=== PATIENT | male | born 1985 | race Caucasian/White ===

== ENCOUNTER 2021-03-16 13:32 | Emergency (ER) | payer BC, SELFPAY ==
--- NOTE | ~2021-03-16 | XR_ITS ---
EXAMINATION: XR ankle LT min 3V DATE: 03/16/2021 14:10 INDICATION: Lateral left ankle pain post twisting injury TECHNIQUE: Anteroposterior, oblique, mortise, and lateral views of the left ankle were obtained. COMPARISON: None. FINDINGS: Alignment is normal. No fracture. Joint spaces are well maintained. A couple bone islands in the dis mohini tibia and distal fibula. No ankle joint effusion. Soft tissue swelling overlying the lateral mall eolus. IMPRESSION: 1. No osseous abnormality. Reviewed, dictated and finalized at location A. IMPRESSION: 1. No osseous abnormality.
[2021-03-16 13:45] VITALS: BP 109/55; PULSE 68; RESP 16; TEMP 36.9; O2SAT 100
--- NOTE | 2021-03-16 15:02 | ED.LOWEXIN ---
HPI - Extremity Injury (Lower) General Chief Complaint: Extremity Injury, Lower Stated Complaint: left ankle pain Time Seen by Provider: 03/16/21 14:56 Source: patient and RN notes reviewed Mode of arrival: ambulatory Limitations: no limitations History of Present Illness HPI Narrative: Patient presents today complaining of left ankle injury. Last night at 2330 he stepped off a tree stump into a hole in his home, twisting his ankle. Reports some numbness in his foot at this time. Currently rates his pain 10/10 after he removed his boot upon arrival. States it was feeling better when he had his boot on and laced up. He did take some ibuprofen, without relief. MD complaint: ankle injury Related Data Home Medications Medication Instructions Recorded Confirmed No Home Medications 03/16/21 03/16/21 Allergies Allergy/AdvReac Type Severity Reaction Status Date / Time No Known Allergies Allergy Verified 03/16/21 13:44 Review of Systems Review of Systems: CONSTITUTIONAL: Denies body aches, fever, chills, or sweats. EYES: Denies visual changes, redness, or discharge. ENT: Denies rhinorrhea, congestion, sore throat, or otalgia. CARDIOVASCULAR: Denies chest pain, palpitations, or edema. RESPIRATORY: Denies cough or dyspnea. GASTROINTESTINAL: Denies abdominal pain, nausea, vomiting, or diarrhea. GENITOURINARY: Denies dysuria or hematuria. SKIN: Denies rash, itching, or wounds. MUSCULOSKELETAL: Denies back pain,or myalgia. + Left ankle injury NEUROLOGIC: Denies headache, tingling, or weakness. + Left foot numbness PSYCH: Denies depression or anxiety. PMFSH Comments At time of signature, I have reviewed and agree with nursing past medical, surgical, social and family history unless otherwise noted. Please see nursing chart for further information. There is no relevant family history pertinent to the presenting complaint Exam Narrative: GENERAL: Well-appearing, well-nourished, and in no acute distress. HEAD: Normocephalic, atraumatic. EYES: EOMI. No redness or drainage. Conjunctivae normal. ENT: Mucous membranes pink and moist. NECK: Normal AROM. CHEST: No respiratory distress. EXTREMITIES: Left ankle: Moderate swelling about the lateral malleolus with mild ecchymosis. Tenderness to same area. Mild tenderness to the medial malleolus and anterior ankle. No tenderness to the foot. Distal sensation is intact in all toes. Capillary refill normal. Pedal pulse normal. Full active range of motion of the ankle with increased pain. SKIN: Warm, dry, no rash. Capillary refill normal. Normal skin turgor. NEURO: No focal deficits. Alert and oriented x3. Gait steady. PSYCH: Normal affect. No signs of depression or anxiety. Course Vital Signs Vital signs: Vital Signs Temperature 98.5 F 03/16/21 13:45 Pulse Rate 68 03/16/21 13:45 Respiratory Rate 16 03/16/21 13:45 Blood Pressure 109/55 L 03/16/21 13:45 Pulse Oximetry 100 03/16/21 13:45 Temperature 98.5 F 03/16/21 13:45 Pulse Rate 68 03/16/21 13:45 Respiratory Rate 16 03/16/21 13:45 Blood Pressure 109/55 L 03/16/21 13:45 Pulse Oximetry 100 03/16/21 13:45 Reviewed MDM - Extremity Injury (Lower) Differential Diagnosis Differential diagnosis: Likely ankle sprain and strain, ankle fracture and other (Contusion) Imaging Data Radiologist's impression: ITS Impressions Ankle X-Ray 03/16/21 14:12 IMPRESSION: 1. No osseous abnormality. Critical Care Time Critical Care Time Critical Care Time: No Discharge Plan Discharge Clinical Impression: Left ankle sprain Patient Disposition: Home, Self-Care Condition: Stable Instructions: Ankle Sprain (DC) Additional Instructions: Your ankle x-ray is negative for fracture today. Elevate and ice the ankle. Wear Andrei wrap for comfort and stability. Take an anti-inflammatory such as Aleve or ibuprofen for pain and inflammation. Follow-up with your PCP or orthoped
== END 2021-03-16 15:20 | disposition home or self-care (01) ==
PROVIDERS: Emergency Provider Nurse Practitioner
DX: S93.402A Sprain of unspecified ligament of left ankle, initial encounter (principal); X50.9XXA Other and unspecified overexertion or strenuous movements or postures, initial encounter
CPT/HCPCS: 73610; 99203; G0463

== ENCOUNTER 2025-03-17 15:50 | Emergency (ER) | payer BC, SELFPAY ==
--- NOTE | ~2025-03-17 | XR_ITS ---
EXAMINATION: XR shoulder RT min 2V DATE: 03/17/2025 16:34 INDICATION: Right shoulder pain and swelling TECHNIQUE: AP internally and externally rotated, AP oblique externally rotated and transscapular Y vi ews of the right shoulder were obtained. COMPARISON: None FINDINGS: Normal alignment. No fracture. Glenohumeral joint space is normal but with moderate-sized marginal o steophyte along the inferior rim of the glenoid. Acromioclavicular joint is normal. There is marginal osteophyte Soft tissues are unremarkable. Visualized portions of the right lung are clear. IMPRESSION: 1. No acute osseous abnormality. 2. Moderate size marginal osteophyte along the inferior right glenoid which could be due to minimal o steoarthritis with relatively preserved joint space or sequela of chronic injury or degeneration to t he inferior labrum. Reviewed, dictated and finalized at location A. IMPRESSION: 1. No acute osseous abnormality. 2. Moderate size marginal osteophyte along the inferior right glenoid which cou ld be due to minimal osteoarthritis with relatively preserved joint space or se quela of chronic injury or degeneration to the inferior labrum.
[2025-03-17 15:58] VITALS: BP 125/68; PULSE 64; RESP 16; TEMP 36.8; O2SAT 97
--- NOTE | 2025-03-17 17:15 | ED_ITS ---
HPI - Extremity Injury (Upper) General Chief Complaint: Extremity Injury, Upper Stated Complaint: Right Shoulder Pain Time Seen by Provider: 03/17/25 15:52 Source: patient Mode of arrival: ambulatory Limitations: no limitations History of Present Illness HPI narrative: Patient is a 39-year-old male who presents with 10 days of right shoulder pain with movement. Reports he does a lot of repetitive motion and he was using a piece of machinery that kept pushing back and his arm while using it. Reports area from front of shoulder to the back over the scapula tender to touch. Patient has been taking ibuprofen with no relief. Related Data Allergies Allergy/AdvReac Type Severity Reaction Status Date / Time No Known Allergies Allergy Verified 03/17/25 15:51 Review of Systems Review of Systems: All systems reviewed & are unremarkable except as noted in HPI and below Constitutional: Constitutional: Denies body ache(s), Denies chills, Denies fatigue, Denies fever(s), Denies headache(s), Denies malaise and Denies weakness Eyes: Eyes: Denies blurry vision, Denies irritation and Denies loss of vision ENT: Denies otalgia, Denies headache(s), Denies nasal discharge, Denies sinus pain and Denies sore throat Cardiovascular: Cardiovascular: Denies chest pain, Denies irregular heart rhythm and Denies dyspnea Respiratory: Respiratory: Denies dyspnea Gastrointestinal: Gastrointestinal: Denies abdominal pain, Denies melena, Denies hematochezia, Denies diarrhea, Denies nausea and Denies vomiting Musculoskeletal: Musculoskeletal: Denies back pain, Denies myalgias, Reports arthralgias and Reports joint swelling Integumentary/Breasts: Skin/Breast: Denies pruritus and Denies rash Neurologic: Denies headache(s), Denies loss of vision and Denies weakness Psychiatric: Psychiatric: Reports no additional psychiatric complaints Endocrine: Endocrine: Denies fatigue PMFSH Comments At time of signature, agree with nursing past medical, surgical, social and family history. There is no relevant family history pertinent to the presenting complaint. Exam Const: General: cooperative, healthy appearing, comfortable, no acute distress and well nourished Nutritional Appearance: well nourished Orientation/consciousness: patient oriented x3 Limitations: no limitations HENMT: Head: normal to inspection, normocephalic and atraumatic Ears: hearing grossly normal bilaterally and external ears normal Face/Nose/Sinus: Normal external nose present, normal facial exam and face symmetric Face and sinus: normal facial exam and face symmetric Mouth: Yes lip normal Eyes: General: appearance normal, both eyes and all related structures Alignment and Position: alignment normal and position normal Periorbital: periorbital findings normal Eyelids: eyelids normal Pupils: Equal, round and reactive pupils present EOM: EOMs intact bilaterally Neck: Neck: normal visual inspection, full ROM and supple Chest: Chest palpation & inspection: normal inspection of the chest Resp: Effort & Inspection: normal respiratory effort and able to speak in complete sentences Auscultation: clear to auscultation bilaterally Cardio: Rate: regular rate Rhythm: regular rhythm Heart sounds: S1 normal heart sound present and S2 normal heart sound present GI: Inspection: normal to inspection Skin: General skin exam: normal color and no rashes or lesions noted Neuro: General: patient oriented x3 and moves all extremities Cranial nerves: Yes Equal, round and reactive pupils present Speech: normal speech Gait exam (Neuro): Normal gait present Extrem: General: normal to inspection, full ROM and no edema Right upper extremity: shoulder/upper arm normal to inspection, tenderness of the clavicle laterally and of the scapula, axillary nerve sensory function normal and abnormal ROM pain with active ROM in ADduction, in ABduction, in extension and in flexion; no swelling, no ecchymosis and no unusual warmth and elbow/forearm normal to inspection, normal ROM and distal pulses intact; no tenderness Psych: Appearance: grossly normal and well kempt Mental Status: mental status grossly normal Speech and movement: Normal speech and movement present Affect: normal affect Attitude: cooperative Thought process: Normal thought process present Course Course Emergency Course: Patient is aware of diagnosis, understands and agrees to treatment plan. Anticipatory guidance given. Patient agrees to follow-up as directed and is aware of reasons to seek care at the emergency department. Portions of this record may have been created with voice recognition software Level of Care: Express Care Visit Vital Signs Vital signs: Vital Signs Temperature 36.8 C 03/17/25 15:58 Pulse Rate 64 03/17/25 15:58 Respiratory Rate 16 03/17/25 15:58 Blood Pressure 125/68 03/17/25 15:58 Pulse Oximetry 97 03/17/25 15:58 Oxygen Delivery Room Air 03/17/25 15:58 Temperature 36.8 C 03/17/25 15:58 Pulse Rate 64 03/17/25 15:58 Respiratory Rate 16 03/17/25 15:58 Blood Pressure 125/68 03/17/25 15:58 Pulse Oximetry 97 03/17/25 15:58 Oxygen Delivery Room Air 03/17/25 15:58 Reviewed MDM - Extremity Injury (Upper) MDM Narrative Medical decision making narrative: The R shoulder is without obvious asymmetry or deformity when comparing to L shoulder. No surface trauma, ecchymosis, crepitus. No bony deformity of the humerus head. No erythema, warmth, swelling to palpate. Nontender to palpate over the A to C joint, acromion, or humeral head. Nontender to palpations of the bicipital groove or soft tissue. Then tender to palpate of the muscles of the scapula, clavicle, sternocleidomastoid, pectori. Nontender biceps/triceps, deltoid, trapezius, rhomboid, latissimus dorsi is, or rotator cuff. pain limitation with active or passive abduction/abduction, flexion/extension. No axillary tenderness or lymphadenopathy. Normal sensation over the deltoid and ability to flex the arm at the elbow indicated Intacs axillary nerve function. Distal motor is a normal vascular status is intact. Will treat with steroids and muscle relaxer for muscle strain or Differential Diagnosis Differential diagnosis: Likely dislocation of shoulder and other (Shoulder strain, muscle strain) Medical Records Attestation: I reviewed the patient's medical records. Imaging Data Radiologist's impression: EXAMINATION: XR shoulder RT min 2V DATE: 03/17/2025 16:34 INDICATION: Right shoulder pain and swelling TECHNIQUE: AP internally and externally rotated, AP oblique externally rotated and transscapular Y views of the right shoulder were obtained. COMPARISON: None FINDINGS: Normal alignment. No fracture. Glenohumeral joint space is normal but with moderate-sized marginal osteophyte along the inferior rim of the glenoid. Acromioclavicular joint is normal. There is marginal osteophyte Soft tissues are unremarkable. Visualized portions of the right lung are clear. IMPRESSION: 1. No acute osseous abnormality. 2. Moderate size marginal osteophyte along the inferior right glenoid which could be due to minimal osteoarthritis with relatively preserved joint space or sequela of chronic injury or degeneration to the inferior labrum. Discharge Plan Discharge Clinical Impression: Osteoarthritis of shoulder Qualifiers: Osteoarthritis type: unspecified Laterality: right Qualified Code(s): M19.011 - Primary osteoarthritis, right shoulder Muscle strain of right shoulder Qualifiers: Encounter type: initial encounter Qualified Code(s): S46.911A - Strain of unspecified muscle, fascia and tendon at shoulder and upper arm level, right arm, initial encounter Patient Disposition: Home Condition: Stable Instructions: Muscle Strain (ED) Additional Instructions: Take steroids in the morning with food. Use muscle relaxers as needed for spasms. They may make you drowsy Avoid activities that cause pain until the pain subsides. Ice to the area 20-30 minutes 4-6 times a day Tylenol for lesser pain Follow up with your primary care provider if the condition is not improving within 1 week. If the condition worsens with numbness, tingling, decrease sensation with weakness seek treatment in the emergency room immediately. Patient Language: Chinese Prescriptions: New cyclobenzaprine 10 mg tablet 10 mg PO TID PRN (Reason: muscle spasm) Qty: 15 0RF prednisone 20 mg tablet 40 mg PO DAILY 5 Days Qty: 10 0RF Follow-up/Referrals: Jaswant Dao MD [Physician] - 3 Days (Establish care) Stand Alone Forms: Work/School Release IP Time of Disposition: 17:18
== END 2025-03-17 17:25 | disposition home or self-care (01) ==
PROVIDERS: Emergency Provider Nurse Practitioner Family
DX: S46.911A Strain of unspecified muscle, fascia and tendon at shoulder and upper arm level, right arm, initial encounter (principal); W31.9XXA Contact with unspecified machinery, initial encounter; M19.011 Primary osteoarthritis, right shoulder
CPT/HCPCS: 73030; 99213; G0463